=== PATIENT | male | born 1965 | race Caucasian/White ===

== ENCOUNTER → 2020-12-07 | Outpatient (CLI) | payer OTHER ==
--- NOTE | 2020-12-10 16:12 | SLEEPHOME ---
DATE: 12/07/2020 ORDERED BY: VIRAJ Alcazar Diagnostic home sleep testing was performed for evaluation in light of concern for the obstructive sleep apnea syndrome in this patient with a history of excessive somnolence and nonrestorative sleep. For testing, a nocturnal T3 respiratory monitoring device was used. Continuous record was made of pulse, oxygen saturation, air flow, chest and abdominal strain, and body position. Nine hours and 59 minutes of data were reviewed. There were 4 hours and 26 minutes marked as time in bed. During the interval marked time in bed, there were 135 respiratory events identified of 10 seconds in duration or greater for a respiratory event index of 30.4. The events were primarily obstructive. Baseline pulse rate was 59. Pulse rate ranged 50 to 93. Baseline saturation was 93%. Saturations fell to 82%. Testing was performed in both the supine and nonsupine positions. IMPRESSION: Abnormal home sleep testing with repetitive respiratory events and oxygen desaturations to 82% and a respiratory event index of 30.4 is consistent with the obstructive sleep apnea syndrome. RECOMMENDATION: The patient should be encouraged to undergo a formal sleep evaluation. Dr. Fam
== END ==
LOC: M SLEEP HO 09:18
PROVIDERS: ATTEND Nurse Practitioner Family
DX: G47.33 Obstructive sleep apnea (adult) (pediatric) (principal)

== ENCOUNTER → 2021-06-26 | Outpatient (CLI) | payer OTHER ==
--- NOTE | 2021-06-26 18:40 | REP ---
INDICATION: RUST IN EYES 5 YEARS AGO/ MRI SCREENING. COMPARISON: None. TECHNIQUE: AP and lateral orbits. FINDINGS: No metallic foreign body is seen in either orbit. IMPRESSION: No metallic foreign body is seen in either orbit. <Electronically signed by Alexander Liao > 06/26/21 [id number]
== END ==
LOC: M RAD 17:43
PROVIDERS: ATTEND Radiology Diagnostic Radiology
DX: T15.01XA Foreign body in cornea, right eye, initial encounter (principal); T15.02XA Foreign body in cornea, left eye, initial encounter

== ENCOUNTER → 2021-06-26 | Outpatient (CLI) | payer OTHER ==
--- NOTE | 2021-06-27 16:31 | REP ---
INDICATION: EVITA SHOULDER PAIN. COMPARISON: None. TECHNIQUE: Axial CT bilateral shoulders performed with sagittal and coronal reconstruction images. FINDINGS: There is no acute fracture or dislocation bilaterally. At both glenohumeral joints there is symmetrical severe joint space narrowing with extensive subchondral sclerosis and cystic change on both sides of the joint. Large spurs are noted of the humeral heads, which are flattened. There is also moderate glenoid spurring diffusely. There is a 7 mm calcific body anterior and inferior to the right glenohumeral joint. There is moderate bilateral narrowing at the acromioclavicular joints with mild spurring. Visualized lung goel are clear. IMPRESSION: Severe degenerative changes at the glenohumeral joints bilaterally. <Electronically signed by Alexander Liao > 06/27/21 [id number]
--- NOTE | 2021-06-27 16:55 | REP ---
INDICATION: EVITA SHOULDER PAIN. COMPARISON: None. TECHNIQUE: Coronal oblique T1, T2 fat sat, sagittal oblique T2 fat sat, axial T2 fat sat, gradient echo. FINDINGS: Rotator cuff: No evidence of tear. Acromioclavicular joint: There is moderate narrowing and spurring at the acromioclavicular joint, with a subchondral cyst in the distal end of the clavicle. Acromion: Type 2 Biceps Tendon: In bicipital groove, no tenosynovitis. Hill Sach's deformity: None. Deltoid muscle: No abnormal signal. Biceps labral complex: The biceps labral complex is at least partially torn. Labrum: There is diffuse labral tearing. Cartilage: There is severe chondromalacia and joint space narrowing at the glenohumeral joint diffusely with large spurs of the humeral head and moderate diffuse glenoid spurring. Bone marrow: There is moderate marrow edema and subchondral cystic change on both sides of the glenohumeral joint. There is flattening of the humeral head Joint fluid: No effusion. IMPRESSION: Severe glenohumeral joint arthritis. Moderate arthritic change at the acromioclavicular joint. No rotator cuff tear. There is at least a partial tear of the biceps labral complex, with diffuse labral tearing. <Electronically signed by Alexander Liao > 06/27/21 [id number]
--- NOTE | 2021-06-27 17:11 | REP ---
INDICATION: EVITA SHOULDER PAIN. COMPARISON: None. TECHNIQUE: Coronal oblique T1, T2 fat sat, sagittal oblique T2 fat sat, axial T2 fat sat, gradient echo. FINDINGS: Rotator cuff: No evidence of tear. Acromioclavicular joint: There are mild hypertrophic changes at the acromioclavicular joint. Acromion: Type 2 Biceps Tendon: In bicipital groove, mild surrounding fluid may represent mild tenosynovitis. Hill Sach's deformity: None. Deltoid muscle: No abnormal signal. Biceps labral complex: There is a tear of the biceps labral complex. Labrum: There is diffuse tearing of the labrum. Cartilage: There is severe chondromalacia and joint space narrowing at the glenohumeral joint. There are large spurs of the humeral head which is flattened. There is moderate diffuse glenoid spurring. Bone marrow: There is moderate marrow edema and subchondral cystic change throughout the glenoid and humeral head along the glenohumeral joint. Joint fluid: There is a small joint effusion. There is subcoracoid calcific body 1.6 cm in diameter. IMPRESSION: Mild hypertrophic changes at the acromioclavicular joint. Severe arthritic change at the glenohumeral joint with associated subchondral marrow edema and cystic change. Small joint effusion. Mild biceps tenosynovitis. Diffuse labral tearing as well as a tear of the biceps labral complex. There is subcoracoid calcific body 1.6 cm in diameter. <Electronically signed by Alexander Liao > 06/27/21 [id number]
== END ==
LOC: M RAD 16:36
PROVIDERS: ATTEND Orthopaedic Surgery
DX: M75.81 Other shoulder lesions, right shoulder (principal); M19.011 Primary osteoarthritis, right shoulder; M19.022 Primary osteoarthritis, left elbow; M65.822 Other synovitis and tenosynovitis, left upper arm; M94.212 Chondromalacia, left shoulder; M75.82 Other shoulder lesions, left shoulder; M25.712 Osteophyte, left shoulder; S46.212A Strain of muscle, fascia and tendon of other parts of biceps, left arm, initial encounter; X58.XXXA Exposure to other specified factors, initial encounter; Y92.89 Other specified places as the place of occurrence of the external cause; Y93.89 Activity, other specified; Y99.8 Other external cause status